=== PATIENT | female | born 2000 | race Caucasian/White ===

== ENCOUNTER 2020-05-24 18:06 | Observation (INO) | payer MEDICAID ==
[~2020-05-24] VITALS: Ht 160 cm; Wt 62.6 kg
[2020-05-24 22:23] LABS: Urine Bacteria NONE SEEN /hpf (None Seen); Urine Blood Negative /uL (Negative); Urine Specific Gravity 1.013 (1.001-1.035); Urine WBC 2 /hpf (0 - 5)
[2020-05-24 22:24] LABS: Basophils # (auto) 0 10 ^3/uL (0-0.2); Basophils % (auto) 0.6 % (0.0-2.0); Eosinophils # (auto) 0.1 10 ^3/uL (0-0.8); Hematocrit 30.9 % (36.0-46.0); Hemoglobin 10.8 g/dL (12.2-16.2); Lymphocytes # (auto) 2.4 10 ^3/uL (0.4-5.4); Mean Corpuscular Hemoglobin 32.8 pg (28.0-32.0); Mean Corpuscular Hgb Conc. 34.8 g/dL (32.0-36.0); Mean Corpuscular Volume 94.4 fL (80.0-100.0); Monocytes # (auto) 0.5 10 ^3/uL (0-1.3); Monocytes % (auto) 6.1 % (0.0-12.0); Neutrophils # (auto) 5.2 10 ^3/uL (1.6-8.6); Neutrophils % (auto) 63.3 % (37.0-80.0); Nucleated Red Blood Cells % 0.1 %; Platelet Count (auto) 179 10^3/uL (140-450); Red Blood Cells 3.28 10^6/uL (4.0-5.20); Red Cell Distribution Width 13.4 % (11.8-14.3); White Blood Cell 8.2 10^3/uL (4.4-10.8)
[2020-05-24 22:33] LABS: Albumin 2.4 g/dL (3.4-5.0); Calcium 7.8 mg/dL (8.5-10.1); Potassium 3.4 mmol/L (3.5-5.1)
[2020-05-24 22:37] LABS: Amphetamine Screen, Urine NEGATIVE (NEGATIVE); Barbiturate Scree,Urine NEGATIVE (NEGATIVE); Benzodiazephine Screen, Urine NEGATIVE (NEGATIVE); Cocaine Screen, Urine NEGATIVE (NEGATIVE); Opiate Scree,Urine NEGATIVE (NEGATIVE); Phencyclidine Screen, Urine NEGATIVE (NEGATIVE)
[2020-05-24 22:40] LABS: Partial Thromboplastin Time 25.6 sec (23.0-31.2)
[2020-05-24 22:42] LABS: Bilirubin, Total 0.5 mg/dL (0.2-1.0); Total Protein 6.2 g/dL (6.4-8.2); Uric Acid 3.7 mg/dL (2.6-6.0)
[2020-05-24 22:45] LABS: Cannabinoid Screen, Urine POSITIVE (NEGATIVE)
[2020-05-25] MEDS ORDERED: CEPH250C PO (00:13)
[2020-05-25] MEDS ORDERED: FERR1TAB36 PO (00:15)
[2020-05-26 06:07] LABS: RPR Non Reactive (Non Reactive)
== END 2020-05-25 00:33 | disposition home or self-care (01) ==
LOC: LDRP 18:06
PROVIDERS: ADMIT Specialist; ATTEND Specialist
DX: O26.853 Spotting complicating pregnancy, third trimester (principal); O26.893 Other specified pregnancy related conditions, third trimester; R10.9 Unspecified abdominal pain; R51.9 Headache, unspecified; O99.891 Other specified diseases and conditions complicating pregnancy; M54.9 Dorsalgia, unspecified; H53.8 Other visual disturbances; Z87.891 Personal history of nicotine dependence; Z79.899 Other long term (current) drug therapy
CPT/HCPCS: 36415; 59025; 76805; 80053; 80307; 81001; 81002; 84550; 85025; 85384; 85610; 85730; 86592; 86703; 86762; 86850; 86900; 86901; 87081; 87340; G0378

== ENCOUNTER 2020-06-06 05:15 | Observation (INO) | payer MEDICAID ==
[~2020-06-06] VITALS: Ht 157.5 cm; Wt 63.0 kg
[~2020-06-06 05:15] MED LIST: CEPH-322 PO; FERR1TAB36 PO
[2020-06-06] MEDS ORDERED: BETAMETHASONE ACET (6MG/ML) 5ML VIAL IM SCH ×2 (06:30→10:00)
== END 2020-06-06 08:57 | disposition home or self-care (01) ==
LOC: LDRP 05:15
PROVIDERS: ADMIT Obstetrics & Gynecology; ATTEND Obstetrics & Gynecology
DX: O62.9 Abnormality of forces of labor, unspecified (principal); Z3A.37 37 weeks gestation of pregnancy; Z87.891 Personal history of nicotine dependence
CPT/HCPCS: 59025; 81002; 96372; G0378; J0702

== ENCOUNTER 2020-06-06 21:21 | Inpatient (IN) | payer MEDICAID ==
[~2020-06-06] VITALS: Ht 157.5 cm; Wt 63.0 kg
[2020-06-06] MEDS ORDERED: TERBUTALINE SULFATE 1 MG/ML 1ML VIAL SC ONE (21:45)
[2020-06-06] MEDS ORDERED: LACT. RINGERS/OXYTOCIN 20UNITS 500 ML IV ONE (21:45)
[2020-06-06] MEDS ORDERED: LACT. RINGERS/OXYTOCIN 20UNITS 1,000 ML IV SCH (21:45)
[2020-06-06] MEDS ORDERED: OXYTOCIN 10UNIT/ML 1ML VIAL IM ONE (21:45)
[2020-06-06] MEDS ORDERED: miSOPROStol 100 mcg TAB SL ONE (21:45)
[2020-06-06] MEDS ORDERED: WITCH HAZEL-GLYCERIN PAD TOP PRN (21:45)
[2020-06-06] MEDS ORDERED: BUTORPHANOL TARTRATE 2 MG/1 ML VIAL IV PRN (21:45)
[2020-06-06] MEDS ORDERED: DERMOPLAST 60ML BOTTLE TOP PRN (21:45)
[2020-06-06] MEDS ORDERED: PROMETHAZINE HCL 25 MG/ML 1ML IV PRN (21:45)
[2020-06-06] MEDS ORDERED: LACTATED RINGER'S 1,000 ML IV SCH (21:45)
[2020-06-06] MEDS ORDERED: PHISODERM TOP SOLN 240ML BTL TOP PRN (21:45)
[2020-06-06] MEDS ORDERED: LIDOCAINE 2%HCL (LOCAL ANESTH.) INJ 20ML MDV IJ ONE (21:45)
[2020-06-06] MEDS ORDERED: miSOPROStol 100 mcg TAB PR ONE (21:45)
[2020-06-06] MEDS ORDERED: METHYLERGONOVINE MALEATE 0.2 MG/ML AMP IM ONE (22:00)
[2020-06-06 22:21] LABS: Basophils # (auto) 0 10 ^3/uL (0-0.2); Basophils % (auto) 0.3 % (0.0-2.0); Eosinophils # (auto) 0 10 ^3/uL (0-0.8); Hematocrit 35.7 % (36.0-46.0); Hemoglobin 11.8 g/dL (12.2-16.2); Lymphocytes # (auto) 1.1 10 ^3/uL (0.4-5.4); Lymphocytes % (auto) 7.9 % (10.0-50.0); Mean Corpuscular Hemoglobin 31.4 pg (28.0-32.0); Mean Corpuscular Hgb Conc. 33.1 g/dL (32.0-36.0); Mean Corpuscular Volume 94.8 fL (80.0-100.0); Monocytes # (auto) 0.4 10 ^3/uL (0-1.3); Monocytes % (auto) 3.2 % (0.0-12.0); Neutrophils # (auto) 12.1 10 ^3/uL (1.6-8.6); Neutrophils % (auto) 88.6 % (37.0-80.0); Red Blood Cells 3.77 10^6/uL (4.0-5.20); Red Cell Distribution Width 13.3 % (11.8-14.3); White Blood Cell 13.6 10^3/uL (4.4-10.8)
[2020-06-06 22:26] LABS: Urine Bacteria NONE SEEN /hpf (None Seen); Urine Blood 1+ /uL (Negative); Urine Specific Gravity 1.009 (1.001-1.035); Urine WBC 6 /hpf (0 - 5)
[2020-06-06 22:37] LABS: INR 1.03 (0.9-1.15); Partial Thromboplastin Time 23.1 sec (23.0-31.2)
[2020-06-06 22:40] LABS: Calcium 8.7 mg/dL (8.5-10.1); Potassium 3.6 mmol/L (3.5-5.1)
[2020-06-06 22:41] LABS: Alcohol, Urine < 3.0 mg/dL (0-10); Amphetamine Screen, Urine NEGATIVE (NEGATIVE); Barbiturate Scree,Urine NEGATIVE (NEGATIVE); Benzodiazephine Screen, Urine NEGATIVE (NEGATIVE); Cannabinoid Screen, Urine NEGATIVE (NEGATIVE); Cocaine Screen, Urine NEGATIVE (NEGATIVE); Opiate Scree,Urine NEGATIVE (NEGATIVE); Phencyclidine Screen, Urine NEGATIVE (NEGATIVE)
[2020-06-06 22:43] LABS: Bilirubin, Total 0.7 mg/dL (0.2-1.0); Total Protein 7.5 g/dL (6.4-8.2)
[2020-06-07] MEDS ORDERED: ACETAMINOPHEN 325 MG TAB PO PRN (01:30)
[2020-06-07] MEDS ORDERED: IBUPROFEN 600 MG TAB PO PRN (01:30)
[2020-06-07] MEDS ORDERED: LACT. RINGERS/OXYTOCIN 20UNITS 500 ML IV ONE (02:00)
[2020-06-07 03:00] VITALS: BP 108/71
[2020-06-07 07:00] VITALS: BP 105/66
[2020-06-07 11:30] VITALS: BP 120/70
[2020-06-07 15:00] VITALS: BP 134/62
[2020-06-07 19:00] VITALS: BP 119/63
[2020-06-07] MEDS ORDERED: TETANUS-DIPTH-ACEL PERTUSSIS 0.5ML SYR Tdap IM ONE (20:15)
[2020-06-07 23:00] VITALS: BP 114/68
[2020-06-08 03:00] VITALS: BP 112/65
[2020-06-08 07:24] VITALS: BP 98/58
[2020-06-08 14:06] LABS: RPR Non Reactive (Non Reactive)
== END 2020-06-08 10:46 | disposition home or self-care (01) | DRG 560 ==
LOC: OBSVTOIN 21:21 → LDRP 21:21
PROVIDERS: ADMIT Obstetrics & Gynecology; ATTEND Obstetrics & Gynecology
PROC: 10E0XZZ Delivery of Products of Conception, External Approach (ICD-10-PCS; principal; 2020-06-06)
DX: O69.81X0 Labor and delivery complicated by cord around neck, without compression, not applicable or unspecified (principal); O60.10X0 Preterm labor with preterm delivery, unspecified trimester, not applicable or unspecified; O62.3 Precipitate labor; Z20.822 Contact with and (suspected) exposure to COVID-19; Z3A.37 37 weeks gestation of pregnancy; Z37.0 Single live birth
CPT/HCPCS: 36415; 59025; 59409; 80053; 80307; 81001; 81002; 85025; 85610; 85730; 86592; 86850; 86900; 86901; 87426; 90715; 96360; 96361; 96365; 96366; 96372; G0378; J2590